=== PATIENT | female | born 1990 | race Hispanic/Latino ===

== ENCOUNTER 2023-11-18 21:27 | Emergency (ER) | payer OTHER ==
[~2023-11-18] VITALS: Ht 149.9 cm; Wt 61.7 kg
[2023-11-18 23:10] LABS: APPEARANCE,URINE TURBID (CLEAR); BILIRUBIN,URINE NEGATIVE (NEGATIVE); COLOR,URINE YELLOW (YELLOW); GLUCOSE, URINE (UA) NEGATIVE (NEGATIVE); KETONES,URINE NEGATIVE (NEGATIVE); LEUKOCYTE ESTERASE ,URINE 500 Leu/uL (NEGATIVE); NITRATE,URINE NEGATIVE (NEGATIVE); PH,URINE 5.5 (5.0-8.0); PROTEIN,URINE 30 mg/dL (NEGATIVE); UROBILINOGEN,URINE 0.2 mg/dL (0.2-1.0)
[2023-11-18 23:11] LABS: ADD UA MICROSCOPIC YES
[2023-11-18 23:13] LABS: BACTERIA,URINE RARE /HPF (None Seen); MUCUS,URINE RARE LPF (None Seen); SQUAMOUS EPITHELIAL CELL,UR MANY /HPF (0-2); WBC,URINE 26-50 /HPF (0-1)
[2023-11-19] MEDS ORDERED: MACR100 PO (00:13)
[2023-11-19] MEDS ORDERED: ACETAMINOPHEN 500 MG TABLET PO ONE (00:30)
[2023-11-19] MEDS ORDERED: NITROFURANTOIN MONOHYD/M-CRYST 100 MG CAPSULE PO ONE (01:26)
[2023-11-19 02:00] VITALS: BP 118/72; PULSE 76; RESP 16; O2SAT 99
[2023-11-19] MEDS ORDERED: NITROFURANTOIN MONOHYD/M-CRYST 100 MG CAPSULE PO SCH (09:00)
== END 2023-11-19 02:01 | disposition home or self-care (01) ==
LOC: EDH 21:27
DX: O23.41 Unspecified infection of urinary tract in pregnancy, first trimester (principal); N39.0 Urinary tract infection, site not specified; Z3A.11 11 weeks gestation of pregnancy; Z98.890 Other specified postprocedural states
CPT/HCPCS: 81001; 81025; 87088